=== PATIENT | male | born 1965 | race American Indian/Alaskan Native ===

== ENCOUNTER 2017-03-18 11:25 | Emergency (ER) | payer OTHER ==
[2017-03-18 12:35] VITALS: BP 137/74
[2017-03-18 13:00] LABS: Hematocrit 49.8 % (35.5-45.6); Hemoglobin 16.6 gm/dl (11.8-15.2); Mean Corpuscular HGB Conc 33 % (32-34); Mean Corpuscular Hemoglobin 29 pg (28-32); Mean Corpuscular Volume 88 fl (84-94); Platelet Count 224 K/mm3 (140-440); Red Blood Count 5.63 M/mm3 (3.65-5.03); Red Cell Distribution Width 13.2 % (13.2-15.2)
[2017-03-18 13:20] LABS: BUN/Creatinine Ratio 28; Blood Urea Nitrogen 25 mg/dL (9-20); Calcium 9.8 mg/dL (8.4-10.2); Hemolysis Index 28
[2017-03-18 13:37] LABS: INR 0.8 (0.87-1.13)
[2017-03-18 13:38] LABS: Partial Thromboplastin Time 25.9 Sec. (24.2-36.6)
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
== END 2017-03-19 04:47 | disposition home or self-care (01) ==
LOC: ED 11:25
DX: S29.9XXA Unspecified injury of thorax, initial encounter (principal); I10 Essential (primary) hypertension; E11.40 Type 2 diabetes mellitus with diabetic neuropathy, unspecified; E11.319 Type 2 diabetes mellitus with unspecified diabetic retinopathy without macular edema; V89.2XXA Person injured in unspecified motor-vehicle accident, traffic, initial encounter; Y93.89 Activity, other specified; Y92.89 Other specified places as the place of occurrence of the external cause; Y99.8 Other external cause status
CPT/HCPCS: 36415; 71046; 71260; 80048; 82550; 84484; 85027; 85610; 85730; 93005; 93010; 99284; Q9967